=== PATIENT | male | born 1995 | race Two or more races ===

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

== ENCOUNTER 2019-04-27 20:16 | Emergency (ER) | payer BC, MEDICAID ==
[~2019-04-27] VITALS: Ht 165.1 cm; Wt 77.1 kg
[2019-04-27 21:18] LABS: Urine Bacteria NONE SEEN /hpf (None Seen); Urine Blood Negative /uL (Negative); Urine Mucus FEW (None Seen); Urine Specific Gravity 1.026 (1.001-1.035); Urine WBC 1 /hpf (0 - 3)
[2019-04-27 21:19] LABS: Basophils # (auto) 0 uL; Basophils % (auto) 0.6 % (0.0-2.0); Eosinophils # (auto) 0 uL; Eosinophils % (auto) 0.9 % (0.0-7.0); Hematocrit 46.6 % (41.0-53.0); Hemoglobin 15.9 g/dL (13.5-17.5); Lymphocytes # (auto) 1.6 uL; Lymphocytes % (auto) 38.9 % (10.0-50.0); Mean Corpuscular Hemoglobin 32.8 pg (28.0-32.0); Mean Corpuscular Hgb Conc. 34.2 g/dL (32.0-36.0); Mean Corpuscular Volume 95.8 fL (80.0-100.0); Monocytes # (auto) 0.5 uL; Monocytes % (auto) 11.5 % (0.0-12.0); Neutrophils % (auto) 48.1 % (37.0-80.0); Nucleated Red Blood Cells % 0.2 %; Platelet Count (auto) 243 10^3/uL (140-450); Red Blood Cells 4.86 10^6/uL (4.5-5.90); Red Cell Distribution Width 12.8 % (11.8-14.3); White Blood Cell 4.2 10^3/uL (4.4-10.8)
[2019-04-27 21:40] LABS: Albumin 4.4 g/dL (3.4-5.0); Calcium 9.4 mg/dL (8.5-10.1); Magnesium 2.2 mg/dL (1.6-2.6)
[2019-04-27 21:43] LABS: INR 1.08 (0.9-1.15); Partial Thromboplastin Time 26.1 sec (23.64-32.05)
[2019-04-27 21:44] LABS: BUN/Creatinine Ratio 14.1; Bilirubin, Total 0.3 mg/dL (0.2-1.0); Total Protein 8.1 g/dL (6.4-8.2)
[2019-04-28 04:44] VITALS: BP 135/94
[2019-04-28] MEDS ORDERED: LIDOCAINE VISCOUS 2% 15ML UD PO ONE (06:15)
[2019-04-28] MEDS ORDERED: ALUM & MAG HYDROX-SIMETH LIQ(MAALOX) 30 ML PO ONE (06:15)
[2019-04-28] MEDS ORDERED: DONNATAL 5ml ORAL Elix (BELLADONNA ALK-PHENOBARB) PO ONE (06:15)
== END 2019-04-28 07:15 | disposition home or self-care (01) ==
LOC: ER 20:19
DX: K21.0 Gastro-esophageal reflux disease with esophagitis (principal)
CPT/HCPCS: 36415; 74176; 80053; 81001; 82150; 83690; 83735; 85025; 85610; 85730